=== PATIENT | female | born 1970 | race Caucasian/White ===

== ENCOUNTER 2021-12-06 15:19 | Emergency (ER) | payer SELFPAY ==
[~2021-12-06] VITALS: Ht 160 cm; Wt 77.0 kg
[2021-12-06 15:23] VITALS: BP 120/78
[2021-12-06] MEDS ORDERED: IBUPROFEN 600MG TABLET PO STA (16:36)
== END 2021-12-06 20:33 | disposition left against medical advice (07) ==
LOC: ER 15:19
DX: Z53.21 Procedure and treatment not carried out due to patient leaving prior to being seen by health care provider (principal)
CPT/HCPCS: 73562; 99283